=== PATIENT | female | born 1960 | race Hispanic/Latino ===

== ENCOUNTER 2025-01-10 08:52 | Emergency (ER) | payer BC ==
[~2025-01-10] VITALS: Ht 165.1 cm; Wt 77.1 kg
[~2025-01-10 08:52] MED LIST: HYDR-4060 PO; IBUP-2077 PO; PRAV80TA75 PO
--- NOTE | 2025-01-10 09:31 | ERN ---
General Chief Complaint: Knee Injury/Swelling Stated Complaint: LEFT KNEE PAIN Time Seen by MD: 08:55 Source: patient History of Present Illness Initial Comments My patient is a 64-year-old female who presented with complaint of left knee pain which began on 12/29/2024 after walking several miles. Patient denied any trauma or twisting motion. As per patient, the pain was associated with swelling of the knee joint and although the swelling improved, the pain has persisted. She did not seek any medical care and took NSAIDs which did not completely resolve the pain. Currently, pain is present along the joint line and is pronounced on the posterior aspect of knee, along her popliteal fossa. She denies any fever or chills. Timing/Duration: constant Severity: moderate Allergies: Coded Allergies: No Known Drug Allergies (Unverified Allergy, Unknown, 04/09/15) Home Meds Reported Medications Hydrocodone/Acetaminophen (Hydrocodon-Acetaminophen 5-325) 1 Each Tablet, 1 EACH PO Q4H PRN for PAIN, #20 TAB 04/12/15 Ibuprofen (Ibuprofen 800 mg Tab) 800 Mg Tab, 800 MG PO Q8H PRN for PAIN, #30 TAB 04/12/15 Pravastatin Sodium (Pravastatin Sodium) 80 Mg Tablet, 80 MG PO HS, TAB 04/10/15 Past Medical History Past Medical History: No Pertinent History Past Surgical History: Constitutional: (-) chills, (-) diaphoresis, (-) fever, (-) malaise, (-) weakness, (-) other documentation EENTM: (-) eye pain, (-) blurred vision, (-) tearing, (-) double vision, (-) ear pain, (-) ear discharge, (-) nose pain, (-) nose congestion, (-) throat pain, (-) Throat swelling, (-) mouth pain, (-) tooth pain, (-) mouth swelling, (-) other documentation Respiratory: (-) cough, (-) orthopnea, (-) short of breath, (-) stridor, (-) wheezing, (-) other documentation Cardiovascular: (-) chest pain, (-) edema, (-) palpitations, (-) syncope, (-) dyspnea on exertion, (-) other documentation Gastrointestinal/Abdominal: (-) nausea, (-) vomiting, (-) diarrhea, (-) abdominal pain, (-) abdominal distention, (-) constipation, (-) rectal bleeding, (-) dark stool/melena, (-) other documentation Musculoskeletal: (+) joint pain, (+) joint swelling Skin: (-) laceration, (-) contusion, (-) abrasion, (-) abscess, (-) rash, (-) change in color, (-) change in hair, (-) change in nails, (-) diaphoresis, (-) dryness, (-) other documentation Review of Systems: was completed, & the rest were negative. Nurses Notes Reviewed: Yes Physical Exam General Appearance: (+) mild distress; (-) no apparent distress, (-) apparent distress, (-) moderate distress, (-) severe distress, (-) thin, (-) obese, (-) combative, (-) cachetic, (-) anxious, (-) other documentation Orientation: (+) alert, (+) oriented x 3 Head/Face Trauma: No Ear, Nose, Throat: (-) hearing grossly normal, (-) normal ENT inspection, (-) moist mucous membraine, (-) normal pharynx, (-) normal TM, (-) abnormal TM, (-) pharyngeal erythema, (-) sinus drainange, (-) sinus pain, (-) tonsillar exudate, (-) tonsillar swelling, (-) nasal drip, (-) nasal congestion, (-) hearing decreased, (-) dry mucous membraine, (-) other documentation Neck: (-) normal inspection, (-) supple, (-) full range of motion, (-) no JVD, (-) non-tender, (-) no bruit, (-) tender, (-) limited range of motion, (-) tender lateral, (-) tender midline, (-) thyromegaly, (-) lymphadenopathy, (-) masses, (-) carotid bruit, (-) other documentaion Results Laboratory and Microbiology Labs Reviewed?: Yes MDM Differential diagnosis: Tendinopathy, meniscal tear, bursitis Rationale: Tests considered and ordered secondary to shared decision making in clude: Two-view x-ray of knee joint Previous outside records reviewed: Old ER visits. Risk of complication and/or morbidity or mortality of patient management: None Medications-Per medication reconciliation Need for emergency major/minor surgery: No There are no social concerns with this patient. Prescription drug management Prescriptions will include symptomatic care Patient presented with complain of left knee joint pain and swelling without associated warmth. She denied any fever or chills. Two-view x-ray of knee joint was done to evaluate any fracture or ligament tear. In order to manage pain and muscle spasm, Patient was given ketorolac and Norflex. Additionally, she was provided with knee joint immobilizer. ED Course Orders Procedure Category Date Status Time Orphenadrine Citrate PHA 01/10/25 Complete (Norflex) 09:30 Ketorolac PHA 01/10/25 Complete Tromethamine 30mg/Ml 09:30 Knee 2vw Bilateral RAD 01/10/25 Resulted 09:06 Knee Immobilizer ISAEL 01/10/25 In Process 09:06 Current Medications Medications (Trade) Dose Ordered Sig/Adelaida Route PRN Reason Start Time Stop Time Status Last Admin Dose Admin Ketorolac Tromethamine (toRADol) 30 mg ONCE ONCE IM 01/10/25 09:30 01/10/25 09:31 DC 01/10/25 09:45 Orphenadrine Citrate (Norflex) 60 mg ONCE ONCE IM 01/10/25 09:30 01/10/25 09:31 DC 01/10/25 09:46 Vital Signs Date Time Temp Pulse Resp B/P (MAP) Pulse Ox O2 Delivery O2 Flow Rate FiO2 01/10/25 08:53 98.1 90 16 142/78 98 Room Air 01/10/25 08:53 98.1 90 16 142/78 98 Room Air* 0 21 DX & DISP Disposition: Discharge Departure Impression: Primary Impression: Strain of knee and leg, left Condition: Stable Scripts Diclofenac Sodium (Voltaren Arthritis Pain) 1 % Gel..gram. 5 GM TP BID for 7 Days, #1 TUBE Prov: XIOMY BELL MD 01/10/25 Additional Instructions: FOLLOW-UP WITH PRIMARY CARE PROVIDER IN 1 TO 2 DAYS. TAKE MEDICATIONS DIRECTED HERE IN THE EMERGENCY ROOM. OKAY TO CONTINUE HOME MEDICATIONS UNLESS OTHERWISE DISCUSSED DURING YOUR VISIT IN THE EMERGENCY ROOM TODAY. RETURN TO YOUR NEAREST EMERGENCY ROOM IF SYMPTOMS WORSEN OR IF THERE IS NO IMPROVEMENT. CALL 911 IF YOU NEED IMMEDIATE ASSISTANCE. TAKE TYLENOL [id number] NEEDED AND IF NO CONTRAINDICATIONS ARE PRESENT. INCREASE ORAL HYDRATION. A WOUND CULTURE OR URINE CULTURE WAS ORDERED HERE IN THE EMERGENCY ROOM DEPARTMENT PLEASE FOLLOW-UP WITH PRIMARY CARE PROVIDER AND ADVISE THEM TO GET REPORTS FROM OUR FACILITY. IF YOU HAD ANY QUIRINO WRAP/SPLINTS THAT WERE APPLIED HERE, PLEASE DO NOT REMOVE THEM UNTIL YOU SEE YOUR PRIMARY CARE OR SPECIALTY. Referrals: Referrals: RYAN THAO MD (PCP) RICKY DA SILVA MD Jan 10, 2025 09:31 XIOMY BELL MD Jan 10, 2025 10:37
[2025-01-10] MEDS: ORPHENADRINE 60MG/2ML IM ONE (09:46)
--- NOTE | 2025-01-10 10:13 | HMCIMG ---
RIGHT KNEE RADIOGRAPHS - 2 VIEWS INDICATION: Pain COMPARISON: None FINDINGS: AP, lateral views No acute fracture or dislocation identified. No significant joint effusion is present. Soft tissues appear normal. No radiopaque foreign body noted. IMPRESSION: No radiographic evidence for fracture or dislocation.. LEFT KNEE RADIOGRAPHS - 2 VIEWS INDICATION: Pain COMPARISON: None FINDINGS: AP, lateral views No acute fracture or dislocation identified. No significant joint effusion is present. Soft tissues appear normal. No radiopaque foreign body noted.
[2025-01-10] MEDS ORDERED: DICL20GE TP (10:36)
[2025-01-10 10:52] VITALS: BP 140/76; PULSE 67; RESP 16; TEMP 97.8; O2SAT 97
== END 2025-01-10 11:17 | disposition home or self-care (01) ==
LOC: EDH 08:52
DX: S86.912A Strain of unspecified muscle(s) and tendon(s) at lower leg level, left leg, initial encounter (principal); Z98.890 Other specified postprocedural states; Z79.899 Other long term (current) drug therapy; X58.XXXA Exposure to other specified factors, initial encounter; Y92.89 Other specified places as the place of occurrence of the external cause; Y93.01 Activity, walking, marching and hiking; Y99.8 Other external cause status
CPT/HCPCS: 99284; 29505; 73565; 96372 ×2; J1885; 73560; J2360

== ENCOUNTER → 2025-03-02 | Outpatient (CLI) | payer BC ==
[~2025-03-02] MED LIST changes: +DICL20GE TP
--- NOTE | 2025-03-05 06:33 | HMCIMG ---
CLINICAL INDICATION: Menopausal state COMPARISON: None available TECHNIQUE: Bone densitometry is performed of the lumbar spine and left hip. FINDINGS: Total BMD of lumbar spine is 0.849 g/cm2 with a T-score of -1.8 and Z-score is -0.1. Total BMD of left hip is 0.850 g/cm2 with a T-score of -0.8 and Z-score is 0.2. FRAX SCORE: The 10 year fracture risk for a major osteoporotic fracture and hip fracture 7.7% IMPRESSION: 1. Osteopenia of the lumbar spine and left hip 2. I would recommend follow-up in 13 months World Health Organization criteria for BMD interpretation classify patients as Normal (T-score at or above -1.0), Osteopenic (T-score between -1.0 and -2.5), or Osteoporotic (T-score at or below -2.5). FRAX SCORE: A. All treatment decisions require clinical judgment and consideration of individual patient factors, including patient preferences, comorbidities, previous drug use, risk factors not captured in the FRAX model (e.g., frailty, falls, vitamin D deficiency, increased bone turnover, interval significant decline in bone density) and possible [id number] of fracture risk by FRAX. B. In addition, the NOF Guide recommends that FDA-approved medical therapies be considered in postmenopausal women and men age greater than or equal to 50 years with a: i. Hip or vertebral (clinical or morphometric) fracture. ii. T-score of less than or equal to -2.5 at the spine or hip. iii. Ten-year fracture probability by FRAX of greater than or equal to 3% for hip fracture of greater than or equal to 20% for major osteoporotic fracture.
== END | disposition home or self-care (01) ==
LOC: RAH 08:53
PROVIDERS: ATTEND Family Medicine
DX: M85.88 Other specified disorders of bone density and structure, other site (principal); M85.852 Other specified disorders of bone density and structure, left thigh; Z78.0 Asymptomatic menopausal state
CPT/HCPCS: 77080